=== PATIENT | female | born 1990 | race American Indian/Alaskan Native ===

== ENCOUNTER 2016-08-20 12:55 | Outpatient (CLI) | payer MEDICAID ==
[2016-08-20] MEDS ORDERED: LACTATED RINGERS 500 ML IV ONE (13:13)
[2016-08-20] MEDS ORDERED: ZOFRAN IV PRN (13:36)
[2016-08-20 14:24] LABS: Hematocrit 30.9 % (30.3-42.9); Hemoglobin 10.2 gm/dl (10.1-14.3); Mean Corpuscular HGB Conc 33 % (30-34); Mean Corpuscular Hemoglobin 29 pg (28-32); Mean Corpuscular Volume 88 fl (79-97); Platelet Count 202 K/mm3 (140-440); Red Cell Distribution Width 13.6 % (13.2-15.2); White Blood Count 10.8 K/mm3 (4.5-11.0)
[2016-08-20 14:35] LABS: Bacteria,Urine 2+ /HPF (Negative); Bilirubin,Urine NEG (Negative); Blood,Urine NEG (Negative); Ketones,Urine NEG (Negative); Leukocyte Esterase,Urine MOD (Negative); Mucus,Urine 3+ /HPF; Nitrite,Urine NEG (Negative); Urobilinogen,Urine < 2.0 mg/dL (<2.0); WBC,Urine > 182.0 /HPF (0.0-6.0)
[2016-08-20 14:57] LABS: Alanine Aminotransferase 12 units/L (7-56); Albumin 3.1 g/dL (3.9-5); Albumin/Globulin Ratio 0.9 %; Alkaline Phosphatase 95 units/L (35-129); Anion Gap 17 mmol/L; BUN/Creatinine Ratio 13.33; Bilirubin,Total 0.2 mg/dL (0.1-1.2); Blood Urea Nitrogen 8 mg/dL (7-17); Calcium 8.4 mg/dL (8.4-10.2); Carbon Dioxide 23 mmol/L (22-30); Chloride 102.2 mmol/L (98-107); Glucose 78 mg/dL (65-100); Potassium 3.8 mmol/L (3.6-5.0); Sodium 138 mmol/L (137-145); Total Protein 6.4 g/dL (6.3-8.2)
[2016-08-20 14:58] LABS: Alanine Aminotransferase 12 units/L (7-56); Lactate Dehydrogenase 144 units/L (91-180)
[2016-08-20 15:41] VITALS: BP 83/50
--- NOTE | 2016-08-21 10:39 | Ultrasound Report ---
BIOPHYSICAL PROFILE: Technique: Transabdominal ultrasound with Doppler interrogation. 2 - breathing movements 2 - movements 2 - posture and tone 2 - Qualitative amniotic fluid volume 8 - TOTAL SCORE OF POSSIBLE 8 Heart Rate (bpm) 165
== END 2016-08-20 16:26 | disposition home or self-care (01) ==
LOC: TRG 12:55
PROVIDERS: ATTEND Obstetrics & Gynecology
DX: O77.9 Labor and delivery complicated by fetal stress, unspecified (principal); O47.1 False labor at or after 37 completed weeks of gestation; Z3A.37 37 weeks gestation of pregnancy
CPT/HCPCS: 36415; 59025; 76819; 80053; 81001; 82565; 83615; 84450; 84460; 85027; 96360; 96365; J2405; J7120

== ENCOUNTER 2016-08-26 07:59 | Outpatient (CLI) | payer MEDICAID ==
[2016-08-26 08:28] VITALS: BP 100/61
[2016-08-26] MEDS ORDERED: VISTARIL PO ONE (09:15)
== END 2016-08-26 09:08 | disposition home or self-care (01) ==
LOC: TRG 07:59
PROVIDERS: ATTEND Obstetrics & Gynecology Gynecology
DX: Z34.90 Encounter for supervision of normal pregnancy, unspecified, unspecified trimester (principal); Z3A.00 Weeks of gestation of pregnancy not specified
CPT/HCPCS: 59025; Q0177

== ENCOUNTER 2016-09-06 04:38 | Outpatient (CLI) | payer MEDICAID ==
[2016-09-06] MEDS ORDERED: VISTARIL PO ONE (06:50)
--- NOTE | 2016-09-06 07:26 | Ultrasound Report ---
BIOPHYSICAL PROFILE: History: well-being. Technique: Transabdominal ultrasound with Doppler interrogation. 2 - breathing movements 2 - movements 2 - posture and tone 2 - Qualitative amniotic fluid volume 8 - TOTAL SCORE OF POSSIBLE 8 Heart Rate (bpm) 149
--- NOTE | 2016-09-06 07:27 | Ultrasound Report ---
OB LIMITED History: well-being, evaluate amniotic fluid index. Technique: Transabdominal ultrasound with Doppler interrogation. Gestation: Single Position: Cephalic Amniotic Fluid: Normal ANDREIA = 13.6 cm Heart Rate: 146 BPM
[2016-09-06 09:25] VITALS: BP 126/74
== END 2016-09-06 07:30 | disposition home or self-care (01) ==
LOC: TRG 04:38
PROVIDERS: ATTEND Obstetrics & Gynecology Gynecology
DX: O77.9 Labor and delivery complicated by fetal stress, unspecified (principal); O47.1 False labor at or after 37 completed weeks of gestation; Z3A.40 40 weeks gestation of pregnancy
CPT/HCPCS: 59025; 76815; 76819; Q0177